=== PATIENT | male | born 1960 | race Native Hawaiian/Other Pacific Islander ===

== ENCOUNTER 2016-09-25 07:33 | Day surgery (SDC) | payer BC ==
[2016-09-23 10:20] VITALS: BMI 25.9
[2016-09-25] MEDS ORDERED: Lidocaine 2% Inj (20ml) ONE (07:39)
[2016-09-25] MEDS ORDERED: EPINEPHrine 1 mg/ml (1:1000) Inj ONE (07:39)
[2016-09-25] MEDS ORDERED: Lactated Ringer's 1,000 ML IV ONE (09:20)
[2016-09-25] MEDS ORDERED: Propofol 10 mg/ml Inj (20 ML) ONE (09:30)
[2016-09-25] MEDS ORDERED: Succinylcholine Chloride 20 mg/ml Syr (5 ml) IV ONE (09:30)
[2016-09-25] MEDS ORDERED: Sodium Chloride 0.9% 20 ML IV ONE (10:19)
--- NOTE | 2016-09-25 11:12 | RAD ---
PROCEDURE: CHEST RADIOGRAPH, 1 VIEW HISTORY: post op bronch r/o pnuemo COMPARISON: None available. FINDINGS: LUNGS: The lungs are well inflated. There is consolidation in the right upper lobe. . PLEURA: No pneumothorax or pleural fluid seen. CARDIOVASCULAR: Normal. OSSEOUS STRUCTURES: No significant abnormalities. VISUALIZED UPPER ABDOMEN: Normal. OTHER FINDINGS: None. IMPRESSION: Right upper lobe consolidation which may represent pneumonia however follow-up to resolution is recommended to exclude postobstructive pneumonia.
[2016-09-25 12:02] VITALS: RESP 18; TEMP 97.8; O2SAT 98
[2016-09-25 13:07] VITALS: BP 127/76; PULSE 68
--- NOTE | 2016-09-26 11:01 | OP ---
DATE: 09/25/2016 PROCEDURE: Bronchoscopy and biopsy. INDICATION: Right upper lobe . TYPE OF ANESTHESIA: Local IV sedation. Scope was passed through nostril, upper airway appears normal. bronchial lesion. Transbronchial biopsy done of right upper lobe, multiple biopsies taken. Tolerated the procedure. Kraig Laguna MD
--- NOTE | 2016-09-29 14:34 | RAD ---
PROCEDURE: Intraoperative fluoroscopy HISTORY: RT. UPPER LUNG MASS COMPARISON: Not available TECHNIQUE: Intraoperative fluoroscopy was provided for bronchoscopic lung biopsy. Total time of fluoroscopy was 59.1 seconds. FINDINGS: Four fluoroscopic spot films are submitted. These films are on file for review. IMPRESSION: Fluoroscopy provided.
== END 2016-09-25 13:00 | disposition home or self-care (01) ==
LOC: C.SDS 07:33
PROVIDERS: ATTEND Internal Medicine Pulmonary Disease
DX: R91.8 Other nonspecific abnormal finding of lung field (principal); E11.9 Type 2 diabetes mellitus without complications
CPT/HCPCS: 31628; 71010; 76000; 82948; 87015; 87070; 87075; 87101; 87116; 87206; 88104; 88305; J7120